=== PATIENT | female | born 1945 | race African-American/Black ===

== ENCOUNTER 2021-12-08 12:46 | Emergency (ER) | payer MEDICARE ==
[~2021-12-08] VITALS: Ht 172.7 cm; Wt 105.0 kg
[2021-12-08 12:52] VITALS: BP 157/77
[2021-12-08] MEDS ORDERED: BACITRACIN ZINC OINT UDPKT TOP ONE (13:00)
[2021-12-08] MEDS ORDERED: LIDOCAINE HCL/PF 1% 10 MG/ML 5ML VIAL INFIL ONE (13:15)
[2021-12-08] MEDS ORDERED: TETANUS, DIPHTHERIA, PERTUSSIS VAC/PF 0.5ML (>10YR OLD) IM ONE (13:15)
[2021-12-08] MEDS ORDERED: LIDOCAINE HCL/PF 1% 10 MG/ML 5ML VIAL INFIL NR (15:45)
[2021-12-08] MEDS ORDERED: LIDOCAINE HCL 1% 20ML VIAL (Pyxis) INJ INFIL ONE (15:45)
[2021-12-08] MEDS ORDERED: CEPH500T MT (16:59)
== END 2021-12-08 17:27 | disposition home or self-care (01) ==
LOC: ER 12:46
DX: S41.112A Laceration without foreign body of left upper arm, initial encounter (principal); S51.812A Laceration without foreign body of left forearm, initial encounter; I10 Essential (primary) hypertension; W01.198A Fall on same level from slipping, tripping and stumbling with subsequent striking against other object, initial encounter; Y93.89 Activity, other specified; Y92.018 Other place in single-family (private) house as the place of occurrence of the external cause
CPT/HCPCS: 12006; 70450; 71045; 73060; 73080; 90471; 90715; 99284; J3490

== ENCOUNTER 2021-12-11 15:24 | Emergency (ER) | payer MEDICARE ==
[~2021-12-11] VITALS: Ht 167.6 cm; Wt 89.0 kg
[~2021-12-11 15:24] MED LIST: CEPH500T MT
[2021-12-11 21:26] VITALS: BP 126/84
== END 2021-12-11 21:26 | disposition home or self-care (01) ==
LOC: ER 15:24
DX: Z48.00 Encounter for change or removal of nonsurgical wound dressing (principal)
CPT/HCPCS: 99281

== ENCOUNTER 2021-12-26 12:59 | Emergency (ER) | payer MEDICARE ==
[~2021-12-26] VITALS: Ht 167.6 cm; Wt 91.0 kg
[2021-12-26 13:03] VITALS: BP 176/65
== END 2021-12-26 13:46 | disposition home or self-care (01) ==
LOC: ER 12:59
DX: Z48.02 Encounter for removal of sutures (principal); I10 Essential (primary) hypertension
CPT/HCPCS: 99281